=== PATIENT | female | born 2000 | race Two or more races ===

== ENCOUNTER 2021-11-09 12:27 | Emergency (ER) | payer MEDICAID, OTHER ==
[~2021-11-09] VITALS: Ht 162.6 cm; Wt 95.0 kg
[2021-11-09 12:46] VITALS: BP 130/70
[2021-11-09 13:02] LABS: BILIRUBIN,URINE SMALL (NEG); CLARITY,URINE CLOUDY; COLOR,URINE AMBER; NITRITE,URINE NEGATIVE (NEG); PROTEIN,URINE 30 mg/dL (NEG-TRACE)
[2021-11-09 13:11] LABS: BASO # 0.1 x10^3/uL (0.0-0.2); BASO % 1 % (0-3); EOS % 0 % (0-3); HEMATOCRIT 38.1 % (36.0-47.0); LYMPH # 2.4 x10^3/uL (1.0-4.8); LYMPH % 23 % (24-48); MEAN CORPUSCULAR HEMOGLOBIN 32 pg (25-35); MEAN CORPUSCULAR HGB CONC 34 g/dL (31-37); MEAN CORPUSCULAR VOLUME 93 fL (79-100); MONO # 0.9 x10^3/uL (0.0-1.1); MONO % 9 % (0-9); NEUT % 67 % (31-73); PLATELET COUNT 227 x10^3/uL (140-400); RED BLOOD COUNT 4.12 x10^6/uL (3.50-5.40); RED CELL DISTRIBUTION WIDTH 12.8 % (11.5-14.5); WHITE BLOOD COUNT 10.4 x10^3/uL (4.0-11.0)
[2021-11-09 13:23] LABS: CALCIUM 8.9 mg/dL (8.5-10.1); CREATININE 0.6 mg/dL (0.6-1.0); POTASSIUM 3.7 mmol/L (3.5-5.1)
[2021-11-09 13:29] LABS: ALBUMIN 3.9 g/dL (3.4-5.0); TOTAL BILIRUBIN 0.5 mg/dL (0.2-1.0); TOTAL PROTEIN 7.7 g/dL (6.4-8.2)
[2021-11-09 13:35] LABS: BACTERIA,URINE MANY /HPF (0-FEW)
--- NOTE | 2021-11-09 14:27 | RAD ---
Obstetric ultrasound less than 14 weeks with transvaginal: Reason for examination: Vaginal bleed with . Evaluate for ectopic gestation. HCG of 243. Transabdominally, no gross abnormality seen at the uterus. No gross adnexal masses are evident. Evalu ation however transabdominal is limited since the bladder is empty. Transvaginally, the uterus measures 7.5 x 5.1 x 3.8 cm in greatest dimensions. Endometrium is thicken ed at 1.3 cm. There is no evidence of intrauterine or ectopic gestation. There is a small amount of f luid present in the cervix. There is a small amount of simple fluid in the pelvic cul-de-sac. The right ovary measures 3.2 x 2.3 x 1.6 cm in greatest dimension with normal vascularity. There is a n exophytic cyst measuring 1.7 x 2.2 x 1.5 cm in greatest dimension. The left ovary measures 2.6 x 2.8 x 1.8 cm in greatest dimension shows good vascular flow. There is a 1.6 x 1.5 x 1.6 cm cyst present. IMPRESSION: Thickened endometrium. No evidence of intrauterine or ectopic gestation. Fluid within the cervix. Rec ommend follow-up with hCG levels. Exophytic right ovarian cyst measuring 2.2 cm in greatest dimension. Left ovarian cyst measuring 1.6 cm in greatest dimension. Small amount of simple free fluid in the pelvic cul-de-sac. Electronically signed by: Melissa Gaines MD (11/09/2021 2:25 PM) [facility]
[2021-11-09] MEDS ORDERED: NITR100C62 PO (15:13)
--- NOTE | 2021-11-09 15:14 | PHYS DOC ---
Past Medical History Past Medical History: No Pertinent History Past Surgical History: Smoking Status: Never Smoker Alcohol Use: None Drug Use: None General Adult EDM: Chief Complaint: VAGINAL BLEEDING HPI: HPI: 21-year-old presents to the ed with c/o pelvic cramping that started yesterday with bright red vaginal spotting that started today. Patient reports she had a positive test at home on November 03. Last menstrual period was August 29. History of uncomplicated, breech , status post C- section. States she has an CHOIR DIRECTOR appointment at [facility] with Dr. Collier on December 04-has not established any CHOIR DIRECTOR care during this . Review of Systems: Review of Systems: Constitutional: Denies fever or chills. [] Eyes: Denies change in visual acuity. [] HENT: Denies nasal congestion or sore throat. [] Respiratory: Denies cough or shortness of breath. [] Cardiovascular: Denies chest pain or edema. [] GI: Denies nausea, vomiting, bloody stools or diarrhea. [] : Denies dysuria or hematuria Musculoskeletal: Denies back pain or joint pain. [] Integument: Denies rash or diaphoresis Neurologic: Denies headache, focal weakness or sensory changes. [] Endocrine: Denies polyuria or polydipsia. [] Lymphatic: Denies swollen glands. [] Psychiatric: Denies depression or anxiety. [] Heart Score: C/O Chest Pain: No Risk Factors: Risk Factors: DM, Current or recent (<one month) smoker, HTN, HLP, family history of CAD, obesity. Risk Scores: Score 0 - 3: 2.5% MACE over next 6 weeks - Discharge Home Score 4 - 6: 20.3% MACE over next 6 weeks - Admit for Clinical Observation Score 7 - 10: 72.7% MACE over next 6 weeks - Early Invasive Strategies Allergies: Allergies: Allergies Coded Allergies Type Severity Reaction Last Updated Verified No Known Drug Allergies 11/12/14 No Physical Exam: PE: Constitutional: Well developed, well nourished, no acute distress, non-toxic appearance. HENT: Normocephalic, atraumatic, Eyes: EOMI, conjunctiva normal, no discharge. Neck: Normal range of motion, supple, Cardiovascular: S1/2 present, regular rhythm Lungs & Thorax: Speaking in full sentences, bilateral equal chest rise, no tachypnea or increased work of breathing Abdomen: soft, no tenderness, Skin: Warm, dry, no erythema, no rash. [] Back: No tenderness, no CVA tenderness. [] Extremities: No tenderness, no cyanosis, no lower extremity edema Neurologic: Alert and oriented X 3, normal motor function, normal sensory function, no focal deficits noted. [] Psychologic: Affect normal, judgement normal, mood normal. [] Current Patient Data: Labs: Laboratory Tests Test 11/09/21 12:47 11/09/21 12:53 11/09/21 13:00 Urine Collection Type Unknown Urine Color Mary Urine Clarity Cloudy Urine pH 7.0 (<5.0-8.0) Urine Specific [place] >=1.030 (1.000-1.030) Urine Protein 30 mg/dL (NEG-TRACE) Urine Glucose (UA) Negative mg/dL (NEG) Urine Ketones (Stick) 15 mg/dL (NEG) Urine Blood Large (NEG) Urine Nitrite Negative (NEG) Urine Bilirubin Small (NEG) Urine Urobilinogen Dipstick 2.0 mg/dL (0.2 mg/dL) Urine Leukocyte Esterase Small (NEG) Urine RBC 11-20 /HPF (0-2) Urine WBC 5-10 /HPF (0-4) Urine Squamous Epithelial Cells Many /LPF Urine Bacteria Many /HPF (0-FEW) Urine Mucus Marked /LPF POC Urine HCG, Qualitative Hcg positive (Negative) White Blood Count 10.4 x10^3/uL (4.0-11.0) Red Blood Count 4.12 x10^6/uL (3.50-5.40) Hemoglobin 13.0 g/dL (12.0-15.5) Hematocrit 38.1 % (36.0-47.0) Mean Corpuscular Volume 93 fL (79-100) Mean Corpuscular Hemoglobin 32 pg (25-35) Mean Corpuscular Hemoglobin Concent 34 g/dL (31-37) Red Cell Distribution Width 12.8 % (11.5-14.5) Platelet Count 227 x10^3/uL (140-400) Neutrophils (%) (Auto) 67 % (31-73) Lymphocytes (%) (Auto) 23 % (24-48) L Monocytes (%) (Auto) 9 % (0-9) Eosinophils (%) (Auto) 0 % (0-3) Basophils (%) (Auto) 1 % (0-3) Neutrophils # (Auto) 7.0 x10^3/uL (1.8-7.7) Lymphocytes # (Auto) 2.4 x10^3/uL (1.0-4.8) Monocytes # (Auto) 0.9 x10^3/uL (0.0-1.1) Eosinophils # (Auto) 0.0 x10^3/uL (0.0-0.7) Basophils # (Auto) 0.1 x10^3/uL (0.0-0.2) Maternal Serum HCG Beta Subunit 243 mIU/mL (0-5) H Sodium Level 139 mmol/L (136-145) Potassium Level 3.7 mmol/L (3.5-5.1) Chloride Level 105 mmol/L (98-107) Carbon Dioxide Level 24 mmol/L (21-32) Anion Gap 10 (6-14) Blood Urea Nitrogen 10 mg/dL (7-20) Creatinine 0.6 mg/dL (0.6-1.0) Estimated GFR (Cockcroft-Gault) 125.0 BUN/Creatinine Ratio 17 (6-20) Glucose Level 96 mg/dL (70-99) Calcium Level 8.9 mg/dL (8.5-10.1) Total Bilirubin 0.5 mg/dL (0.2-1.0) Aspartate Amino Transferase (AST) 19 U/L (15-37) Alanine Aminotransferase (ALT) 34 U/L (14-59) Alkaline Phosphatase 132 U/L (46-116) H Total Protein 7.7 g/dL (6.4-8.2) Albumin 3.9 g/dL (3.4-5.0) Albumin/Globulin Ratio 1.0 (1.0-1.7) Laboratory Tests 11/09/21 13:00 Laboratory Tests 11/09/21 13:00 Vital Signs: Vital Signs Date Time Temp Pulse Resp B/P (MAP) Pulse Ox O2 Delivery O2 Flow Rate FiO2 11/09/21 12:46 98.4 102 18 130/70 (90) 99 Room Air 98.4 EKG: EKG: [] Radiology/Procedures: Radiology/Procedures: IMAGING REPORT Signed PATIENT: MACRINA YEUNG ACCOUNT: [id number] : 2000 LOCATION: ER AGE: 21 SEX: F EXAM STATUS: REG ER ORD. PHYSICIAN: MARK VARGAS DO REASON: vb in , r/o ectopic- HCG 243 PROCEDURE: OB <14 WKS W/TV Obstetric ultrasound less than 14 weeks with transvaginal: Reason for examination: Vaginal bleed with . Evaluate for ectopic gestation. HCG of 243. Transabdominally, no gross abnormality seen at the uterus. No gross adnexal masses are evident. Evaluation however transabdominal is limited since the bladder is empty. Transvaginally, the uterus measures 7.5 x 5.1 x 3.8 cm in greatest dimensions. Endometrium is thickened at 1.3 cm. There is no evidence of intrauterine or ectopic gestation. There is a small amount of fluid present in the cervix. There is a small amount of simple fluid in the pelvic cul-de-sac. The right ovary measures 3.2 x 2.3 x 1.6 cm in greatest dimension with normal vascularity. There is an exophytic cyst measuring 1.7 x 2.2 x 1.5 cm in greatest dimension. The left ovary measures 2.6 x 2.8 x 1.8 cm in greatest dimension shows good vascular flow. There is a 1.6 x 1.5 x 1.6 cm cyst present. IMPRESSION: Thickened endometrium. No evidence of intrauterine or ectopic gestation. Fluid within the cervix. Recommend follow-up with hCG levels. Exophytic right ovarian cyst measuring 2.2 cm in greatest dimension. Left ovarian cyst measuring 1.6 cm in greatest dimension. Small amount of simple free fluid in the pelvic cul-de-sac. Electronically signed by: Curtis Davis MD (11/09/2021 2:25 PM) [facility] DICTATED and SIGNED BY: CURTIS DAVIS MD DATE: 11/09/21 [id number] 0 Course & Med Decision Making: Course & Med Decision Making Pertinent Labs and Imaging studies reviewed. (See chart for details) Concern for vaginal bleeding in early , patient describes her bleeding as the beginning of her menstrual cycle. hCG not elevated enough to visualize an IUP. U/A concerning for UTI. Will discharge home with strict ED return p recautions were given for severe pain, heavy vaginal bleeding or syncope. Encouraged urgent outpatient follow-up with PMD for routine care and CHOIR DIRECTOR in the next 2 days for repeat hCG quant. Life-threatening processes were considered but are low suspicion at this time, given history, physical exam and ED workup. Pt was educated on all prescription medications and adverse effects. All patient's questions were answered and pt was stable at time of discharge. Life/limb-threatening differential includes but is not limited to, ectopic , septic , sepsis/infection (endometritis, sti/pid, cystitis, pyelonephritis, Melony's gangrene or necrotizing fasciitis, abscess), ovarian torsion, ruptured hemorrhagic ovarian cyst, endometriosis, ureterolithiasis, thrombophlebitis, hemorrhage/DIC, organ prolapse, abdominal aortic aneurysm, mesenteric ischemia, neoplasm, bowel obstruction or surgical abdomen. I have spoken with the patient and/or caregivers. I explained the patient's condition, diagnoses and treatment plan based on the information available to me at this time. I have answered the patient and/or caregiver's questions and addressed any concerns. The patient and/or caregivers have a good understanding of patient's diagnosis, condition and treatment plan as can be expected at this point. Vital signs have been stable. Patient's condition is stable and appropriate for discharge from the emergency department. Patient will pursue further outpatient evaluation with primary care physician or other designated or consulting physician as outlined in the discharge instructions. The patient and/or caregivers are agreeable to this plan of care and follow-up instructions have been explained in detail. The patient and/or caregivers have received these instructions in written form and have expressed an understanding of the discharge instructions. The patient and/or caregivers are aware that any significant change of condition or worsening of symptoms should prompt immediate return to this or the closest emergency department or call to 911. Delta Disclaimer: Delta Disclaimer: This electronic medical record was generated, in whole or in part, using a voice recognition dictation system. Departure Departure Impression: Primary Impression: Vaginal bleeding during Additional Impression: UTI (urinary tract infection) Disposition: HOME / SELF CARE / HOMELESS Condition: STABLE Referrals: NO PCP (PCP) Follow-up with your primary care physician for routine care OR FOLLOW UP WITH FAMILY MEDICINE: [address] [place] [address] Patient Instructions: Urinary Tract Infection, Vaginal Bleeding During , First Trimester Additional Instructions: FOLLOW UP WITH CHOIR DIRECTOR: FOR DEFINITIVE MANAGEMENT in the next 2 days for repeat quantitative hCG [facility] [address] [place] [address] EMERGENCY DEPARTMENT GENERAL DISCHARGE INSTRUCTIONS Thank you for coming to [facility] Emergency Department (ED) today and trusting us with you care. We trust that you had a positive experience in our Emergency Department. If you wish to speak to the department management, you may call the Director at [phone]. YOUR FOLLOW UP INSTRUCTIONS ARE FOLLOWS: 1. Do you have a private Doctor? If you do not have a private doctor, please ask for a resource list of physicians or clinics that may be able to assist you with follow up care. 2. The Emergency Physicain has interpreted your x-rays. The X-Ray specialist will also review them. If there is a change in the findings, you will be notified in 48 hours when at all possible. 3. A lab test or culture has been done, your results will be reviewed and you will be notified if you need a change in treatment. ADDITIONAL INSTRUCTIONS AND INFORMATION: 1. Your care today has been supervised by a physician who is specially trained in emergency care. Many problems require more than one evaluation for a complete diagnosis and treatment. We recommend that you schedule your follow up appointment as recommended to ensure complete treatment of you illness or injury. If you are unable to obtain follow up care and continue to have a problem, or if your condition worsens, we recommend that you return to the ED. 2. We are not able to safely determine your condition over the phone nor are we able to give sound medical advice over the phone. For these safety reasons, if you call for medical advice we will ask you to come to the ED for further evaluation. 3. If you have any questions regarding these discharge instructions please call the ED at [phone]. SAFETY INFORMATION: In the interest of safety, wellness, and injury prevention; we encourage you to wear your sealbelt, if you smoke; quite smoking, and we encourage family to use a protective helmet for bicycling and other sporting events that present an increased risk for head injury. IF YOUR SYMPTOMS WORSEN OR NEW SYMPTOMS DEVELOP, OR YOU HAVE CONCERNS ABOUT YOUR CONDITION; OR IF YOUR CONDITION WORSENS WHILE YOU ARE WAITING FOR YOUR FOLLOW UP APPOINTMENT; EITHER CONTACT YOUR PRIMARY CARE DOCTOR, THE PHYSICIAN WHOSE NAME AND NUMBER YOU WERE GIVEN, OR RETURN TO THE ED IMMEDIATELY. Scripts Nitrofurantoin Monohyd/M-Cryst (MACROBID [id number] MG CAPSULE) 100 Mg Capsule 1 CAP PO BID for 7 Days, #14 CAP 0 Refills Prov: MARK VARGAS DO 11/09/21 MARK VARGAS DO Nov 09, 2021 15:14
== END 2021-11-09 16:21 | disposition home or self-care (01) ==
LOC: ER 12:27
DX: O23.41 Unspecified infection of urinary tract in pregnancy, first trimester (principal); N39.0 Urinary tract infection, site not specified; Z3A.01 Less than 8 weeks gestation of pregnancy
CPT/HCPCS: 36415; 76801; 76817; 80053; 81001; 81025; 84702; 85025; 86850; 86900; 86901; 87086; 99284-25

== ENCOUNTER → 2021-11-11 | Outpatient (CLI) | payer MEDICAID ==
[2021-11-09 12:46] VITALS: BP 130/70
[~2021-11-11] MED LIST: NITR100C62 PO
== END ==
LOC: LAB 11:42
PROVIDERS: ATTEND Obstetrics & Gynecology
DX: O03.9 Complete or unspecified spontaneous abortion without complication (principal)
CPT/HCPCS: 36415; 84702